=== PATIENT | male | born 1975 | race Caucasian/White ===

== ENCOUNTER → 2020-11-22 | Outpatient (CLI) | payer OTHER ==
[~2020-11-22] MED LIST: AUGMENTIN 875875 M1; PHENERGAN 25 MG25 M1 PO; TESSALON PERLE100 MG; VENTOLIN HFA INH8 GM
== END ==
LOC: M.LAB 07:35
PROVIDERS: ATTEND Orthopaedic Surgery
DX: Z01.812 Encounter for preprocedural laboratory examination (principal); Z20.822 Contact with and (suspected) exposure to COVID-19